=== PATIENT | male | born 2000 | race Caucasian/White ===

== ENCOUNTER 2020-06-25 13:35 | Emergency (ER) | payer BC, SELFPAY ==
[2020-06-25 13:43] VITALS: BP 143/84; PULSE 82; RESP 17; TEMP 36.8; O2SAT 98; BMI 39.9
[2020-06-25 13:45] VITALS: BP 126/87; PULSE 82; RESP 14; TEMP 37; O2SAT 98; BMI 39.9
--- NOTE | 2020-06-25 13:53 | XR_ITS ---
PROCEDURE: XR KNEE RT 3V CLINICAL INDICATION: injury playing softball COMPARISON: No exams were available for comparison FINDINGS: No fracture or dislocation. No lytic or blastic change. There is normal mineralization. The joint spaces are well-preserved. No significant degenerative/arthritic changes. No erosive changes evident. 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 IMPRESSION: No acute findings. Dictated by: Dr. Jonathan Payton MD 06/25/2020 14:16 Dr. Jonathan Payton MD in [place] 06/25/2020 14:16
[2020-06-25 14:58] VITALS: BP 126/87; PULSE 82; RESP 14; TEMP 37; O2SAT 98
--- NOTE | 2020-06-25 14:58 | HMH.EDUTC ---
[facility] [place]ression: Right knee sprain Qualifiers: Encounter type: initial encounter Involved ligament of knee: unspecified ligament Qualified Code(s): S83.91XA - Sprain of unspecified site of right knee, initial encounter Right knee pain Qualifiers: Chronicity: acute Qualified Code(s): M25.561 - Pain in right knee Disposition: Home, Self-Care Condition on Discharge: Good Instructions: DI for Knee Sprain Additional Instructions: Rest the extremity, apply ice for 15 minutes as tolerated three or four times per day, Elevate the extremity as tolerated while you are resting. Take ibuprofen for pain. I sent in a prescription to your pharmacy. Follow up with Dr. Delgado (orthopedics). I put in a referral but you need to call his office and schedule an appointment. Follow up with your regular doctor. GO TO THE ER FOR ANY WORSENING SYMPTOMS Prescriptions: Ibuprofen [Ibuprofen 600mg Tablet] 600 mg PO Q6HP PRN #30 tab PRN Reason: Mild Pain Transmission Status: Received by [id number] Referrals: Sunny Villalba MD [Primary Care Provider] - Antoine Delgado MD [Staff Physician] - Time of Disposition: 15:05 Medical Decision Making - Medical Records Medical records reviewed: No: I reviewed the patient's medical records. - Louis Inquiry Pt receiving controlled substance: No Vital Signs: 06/25/20 13:43 06/25/20 13:45 06/25/20 14:58 Temperature 98.3 F 98.6 F 98.6 F Temperature Source Oral Oral Pulse Rate 82 Pulse Rate [Left Brachial] 82 82 Respiratory Rate 17 14 14 Blood Pressure 126/87 Blood Pressure [Left Arm] 143/84 H 126/87 Blood Pressure Mean [Left Arm] 103 100 Blood Pressure Source [Left Arm] Automatic Cuff Automatic Cuff Blood Pressure Position [Left Arm] Sitting Sitting 02 Sat by Pulse Oximetry 98 98 Oxygen Delivery Method Room Air Room Air - Radiology Data #1 Image(s): Knee Image Reviewed: Yes I reviewed the patient's radiology image, Yes I have reviewed radiologist's interpretation Preliminary Findings: Normal/NAD, No Fracture Seen PROCEDURE: XR KNEE RT 3V CLINICAL INDICATION: injury playing softball COMPARISON: No exams were available for comparison FINDINGS: No fracture or dislocation. No lytic or blastic change. There is normal mineralization. The joint spaces are well-preserved. No significant degenerative/arthritic changes. No erosive changes evident. 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 IMPRESSION: No acute findings. Dictated by: Dr. Jonathan Payton MD 06/25/2020 14:16 Dr. Jonathan Payton MD in [place] 06/25/2020 14:16 [facility] [place] - General Stated complaint: [id number] right knee pain Time Seen by Provider: 06/25/20 13:45 Mode of Arrival: Ambulatory Source of Information: Patient Limitations: No Limitations Description of Symptoms (Recalled from Triage Doc. by RN): PATIENT C/O RIGHT KNEE PAIN. STATES HE WAS PLAYING SOFTBALL YESTERDAY AND HEARD SOMETHING POP HEENT Symptoms (Recalled from RN notes): No Resp Symptoms (Recalled from RN notes): No Skin Symptoms (Recalled from RN notes): No MS Symptoms (Recalled from RN notes): Yes Functional Status (Recalled from RN notes): WNL - History of Present Illness Provider Complaint: He states that he was playing softball yesterday when he hurt his right knee when he slid into a base. He states that he felt a pop and now he is having pain on the medial side of his knee. It is worse with walking or bearing weight. - Related Data Previous Rx's Medication Instructions Recorded Ibuprofen [Ibuprofen 600mg 600 mg PO Q6HP PRN #30 tab 06/25/20 Tablet] Allergies Allergy/AdvReac Type Severity Reaction Status Date / Time No Known Allergies Allergy Unverified 08/10/17 15:05 - Worker's Comp Is this a Worker's Comp case?: No [facility] History - Hepatitis A Screen Drug use history?: No High risk
== END 2020-06-25 15:10 | disposition home or self-care (01) ==
PROVIDERS: Emergency Provider Nurse Practitioner Family; PCP Family Medicine
DX: S83.91XA Sprain of unspecified site of right knee, initial encounter (principal); X50.1XXA Overexertion from prolonged static or awkward postures, initial encounter; Y93.64 Activity, baseball; Y92.328 Other athletic field as the place of occurrence of the external cause
CPT/HCPCS: 29505; 73562; 99202

== ENCOUNTER 2020-07-16 13:48 | Outpatient (RCR) | payer BC, SELFPAY ==
--- NOTE | 2020-07-16 14:55 | HMH.PTOPEV ---
PT Outpatient Evaluation Rehab PT Outpatient Evaluation Start: 07/16/20 14:41 Freq: Status: Active Protocol: Document 07/16/20 14:42 KESHIA (Rec: 07/16/20 14:55 RAYMONDAMY [id number]) Electronically Signed By Bentley Green, PT 07/16/20 14:42 Outpatient Therapy Subjective History Subjective History Patient is a 20 year old male presenting to outpatient PT with reports R knee pain starting approximatley 6 months ago with increased sporting activity levels. Most recent imaging negative. No other comorbidities to report. Chief Complaint Pain,Stiff Symptom Type Sharp,Shooting Symptoms Relieved By Rest/Positioning,Ice,OTC Meds Symptoms Aggravated By Standing,Physical Activity, Walking Prior Functional Limitations None Current Functional Limitations Housework,Standing,Squatting, Recreation Activity,Walking, Stairs Symptom Description Intermittent Level of pain today (0-10) 0 Pain scale - at its best (0-10) 0 Pain scale - at its worst (0-10) 7 Hip/Knee Eval Gait Observation General Gait Pattern Observation Antalgic Gait,Decrease Weight Bear (R) Assistive Device Assistive Devices None / NA Palpation Tenderness right Knee Palpation Finding Tenderness Knee Palpation Overall Comment Patellar tendon and apex of patella 3/4 MMT Hip Flexion Strength Grade 5 Normal Hip Abduction Strength Grade 5 Normal Hip Adduction Strength Grade 4 Good Hip Extension Strength Grade 4 Good Hip External Rotation Strength Grade 4 Good Hip Internal Rotation Strength Grade 4 Good Knee Extension Strength Grade 4- Good- Knee Flexion Strength Grade 5 Normal ROM Hip ROM Reason Not Measured Within Functional Limits Knee Extension Active Range of Motion ( -3 degrees) Knee Flexion Active Range of Motion ( 126 degrees) Special Tests Knee Apley Compression Test Negative Right Knee Anterior Drawer Test Negative Right Knee Anterior Timoteo Test Negative Right Knee Valgus Stress Test Negative Right Knee Varus Stress Test Negative Right Knee Mynor Test Negative Right Outpatient Therapy Assessment Impairments Problems/Impairmments Palpation Tenderness,Impaired Range of Motion,Impaired Strength,Impaired Gait Pattern ,Impaired Walking,Impai
== END 2020-07-16 13:50 | disposition home or self-care (01) ==
LOC: PT 13:48
PROVIDERS: PCP Family Medicine; Visit Provider Orthopaedic Surgery
DX: M76.51 Patellar tendinitis, right knee (principal); S83.001A Unspecified subluxation of right patella, initial encounter
CPT/HCPCS: 97163

== ENCOUNTER 2020-08-30 10:19 | Emergency (ER) | payer BC, SELFPAY ==
[2020-08-30 10:30] VITALS: BP 114/76; PULSE 104; RESP 19; TEMP 36.9; O2SAT 98; BMI 38.9
--- NOTE | 2020-08-30 10:52 | HMH.EDUTC ---
[facility] [place] Clinical Impression: Viral syndrome Disposition: Home, Self-Care Condition on Discharge: Good Instructions: DI for COVID-19 (Suspected or Confirmed ), Preventing the Spread of Coronavirus Discharge Instructions Additional Instructions: Drink plenty of fluids. Take tylenol for pain or fever. Return if you begin to have difficulty breathing. Follow up with your regular doctor. GO TO THE ER FOR ANY WORSENING SYMPTOMS Prescriptions: Ondansetron [Zofran 4mg ODT] 4 mg PO Q8HP PRN #12 tab.rapdis PRN Reason: Nausea Transmission Status: Received by [id number] Referrals: Sunny Villalba MD [Primary Care Provider] - Time of Disposition: 11:02 Medical Decision Making - Medical Records Medical records reviewed: No: I reviewed the patient's medical records. - Louis Inquiry Pt receiving controlled substance: No Vital Signs: 08/30/20 10:30 08/30/20 11:08 Temperature 98.4 F 98.4 F Temperature Source Oral Pulse Rate 104 H Pulse Rate [Right Brachial] 104 H Respiratory Rate 19 19 Blood Pressure 114/76 Blood Pressure [Right Arm] 114/76 Blood Pressure Mean [Right Arm] 88 Blood Pressure Source [Right Arm] Automatic Cuff Blood Pressure Position [Right Arm] Sitting 02 Sat by Pulse Oximetry 98 Oxygen Delivery Method Room Air Orders (Tests/Meds): ORDERS Category Date Time Status Covid-19 Nasal PCR ([facility]) Routine Lab 08/30/20 10:30 Received [facility] [place] HPI - General Stated complaint: covid test Time Seen by Provider: 08/30/20 10:52 Mode of Arrival: Ambulatory Source of Information: Patient Limitations: No Limitations Description of Symptoms (Recalled from Triage Doc. by RN): PATIENT REQUESTING COVID TEST D/T EXPOSURE; C/O BODY ACHES AND NO TASTE OR SMELL HEENT Symptoms (Recalled from RN notes): Yes Resp Symptoms (Recalled from RN notes): No Skin Symptoms (Recalled from RN notes): No MS Symptoms (Recalled from RN notes): No Functional Status (Recalled from RN notes): WNL - History of Present Illness Provider Complaint: He states that for the past 2 days he has had nausea, chilling, body aches. He has been exposed to covid-19. - Related Data Previous Rx's Medication Instructions Recorded Ibuprofen [Ibuprofen 600mg 600 mg PO Q6HP PRN #30 tab 06/25/20 Tablet] Ondansetron [Zofran 4mg ODT] 4 mg PO Q8HP PRN #12 tab.rapdis 08/30/20 Allergies Allergy/AdvReac Type Severity Reaction Status Date / Time No Known Allergies Allergy Verified 06/27/20 08:59 - Worker's Comp Is this a Worker's Comp case?: No [facility] History - Hepatitis A Screen Drug use history?: No High risk sexual behaviors?: No History of sexually transmitted infection?: No Currently employed?: No Childcare worker?: No Do you have indoor plumbing?: Yes Do you have electricity?: Yes Attestation statement:: This patient has been screened for Hepatitis A risk factors. I have reviewed the patient's past medical history: Yes Other Surgeries: Yes: No Previous Surgery - Social History Smoking Status: Never smoker Alcohol Intake: never Substance Use Type: denies use Occupational Status: other ROS Obtained: Yes All systems reviewed & no additional complaints - Constitutional Constitutional: Reports chills, Denies fever(s), Reports poor appetite, Reports malaise - Eyes Eyes: Denies eye discharge - ENT Ears, Nose, Mouth, and Throat: Reports as per HPI - Cardiovascular Cardiovascular: Reports system reviewed and no additional complaints, except as docu - Respiratory Respiratory: Reports system reviewed and no additional complaints, except as docu - Gastrointestinal Gastrointestingal: Reports: system reviewed and no additional complaints, except as docu Physical Exam - General General appearance: alert, in no apparent distress - Head Head exam: atraumatic, normocephalic, normal inspection - Eye Eye exam: Present: normal appearance, PERRL, EOMI - EN
[2020-08-30 11:08] VITALS: BP 114/76; PULSE 104; RESP 19; TEMP 36.9; O2SAT 98
--- NOTE | 2020-08-30 17:29 | PC.NURSE ---
PT NOTIFIED OF POSITIVE COVID RESULTS
== END 2020-08-30 11:09 | disposition home or self-care (01) ==
PROVIDERS: Emergency Provider Nurse Practitioner Family; PCP Family Medicine
DX: U07.1 COVID-19 (principal)
CPT/HCPCS: 99202; G0463; U0003

== ENCOUNTER 2021-07-23 19:23 | Emergency (ER) | payer BC, SELFPAY ==
--- NOTE | 2021-07-23 19:14 | ECG_ITS ---
APPROVED REPORT Exam: Resting ECG HR:92 bpm ECG Measurements Heart Rate 92 AXES [place] 134 P 77 QRSd 80 QRS 49 QT 360 T 43 QTc 445 Conclusion Normal sinus rhythm Normal ECG Electronically signed by : Sunny Tinsley MD 07/24/2021 20:25:00
[2021-07-23 19:24] VITALS: BP 138/83; PULSE 97; RESP 16; TEMP 36.8; O2SAT 100; BMI 38.9
--- NOTE | 2021-07-23 19:25 | XR_ITS ---
PROCEDURE INFORMATION: Exam: XR Chest Exam date and time: 07/23/2021 7:25 PM Age: 21 years old Clinical indication: Sternal or substernal pain; Patient HX: Mid sternum chest pain started tonight; Additional info: Cough TECHNIQUE: Imaging protocol: XR of the chest. Views: 1 view. Total images: 1 COMPARISON: No relevant prior studies available. FINDINGS: Lungs: Normal pulmonary expansion. Pulmonary vasculature grossly normal. No gross pulmonary infiltrates or edema pattern. Pleural spaces: No pleural effusion. No pneumothorax. Heart/Mediastinum: Heart size normal. No tracheal/mediastinal shift. Bones/joints: No acute osseous abnormalities are identified. Other findings: Lordotic projection. IMPRESSION: No acute thoracic process.
--- NOTE | 2021-07-23 19:28 | HMH.EDCP ---
ED Disposition Clinical Impression: Costalchondritis Disposition: Home, Self-Care Condition on Discharge: Good Instructions: DI for Costochondritis Referrals: Sunny Villalba MD [Primary Care Provider] - - Critical Care Critical Care Time: No Attestation: On 07/23/21, the high probability of a clinically significant, sudden or life threatening deterioration of the following system(s) required my full and direct attention, intervention and personal management. The time I documented below is in addition to time spent performing reported procedures but includes the following listed in this critical care notation. Medical Decision Making - Medical Records Medical records reviewed: Yes: I reviewed the patient's medical records. - Louis Inquiry Pt receiving controlled substance: No Vital Signs: 07/23/21 19:24 Temperature 98.2 F Temperature Source Oral Pulse Rate [Right Radial] 97 H Respiratory Rate 16 Blood Pressure [Right Arm] 138/83 Blood Pressure Mean [Right Arm] 101 Blood Pressure Source [Right Arm] Automatic Cuff Blood Pressure Position [Right Arm] Sitting 02 Sat by Pulse Oximetry 100 Oxygen Delivery Method Room Air - Lab Data Lab Results 07/23/21 19:26: WBC 9.7, RBC 5.44, Hgb 15.4, Hct 44.7, MCV 82.2, MCH 28.3, MCHC 34.4, RDW 13.1, Plt Count 390, MPV 7.0 L, Neut % (Auto) 67.1, Lymph % (Auto) 23.4, [place] % (Auto) 6.6, Eos % (Auto) 1.9, Baso % (Auto) 0.9, Neut # (Auto) 6.5, Lymph # (Auto) 2.3, [place] # (Auto) 0.7, Eos # (Auto) 0.2, Baso # (Auto) 0.1 07/23/21 19:26: Sodium 140, Potassium 3.9, Chloride 101, Carbon Dioxide 29, Anion Gap 13.9, BUN 14, Creatinine 0.80, Estimated Creat Clear 297, Estimated GFR 121, Est GFR ( Amer) 146, Glucose 97, Calcium 9.9, Total Bilirubin 0.4, AST 36, ALT 28, Alkaline Phosphatase 104, Troponin I < 0.01, Total Protein 8.4 H, Albumin 4.9, Globulin 3.5 H, Albumin/Globulin Ratio 1.4, Lipase 51 Result diagrams: 07/23/21 19:26 07/23/21 19:26 Orders (Tests/Meds): ED MEDICATIONS Generic Name Dose Route Start Last Admin Trade Name Freq PRN Reason Stop Dose Admin Sodium Chloride 8 ml 07/23/21 19:25 Sodium Chloride 0.9% 10ml Vial IV 08/22/21 19:24 NEEDED PRN dilute pepcid Discontinued Medications Generic Name Dose Route Start Last Admin Trade Name Freq PRN Reason Stop Dose Admin Famotidine 20 mg 07/23/21 19:25 07/23/21 19:42 Famotidine 20mg/2ml Vial IV 07/23/21 19:26 20 mg ONCE ONE Administration Ketorolac Tromethamine 30 mg 07/23/21 19:25 07/23/21 19:42 Ketorolac 30mg/Ml Vial IV 07/23/21 19:26 30 mg ONCE ONE Administration ORDERS Category Date Time Status Troponin I Q3H Lab 07/23/21 22:30 Ordered Troponin I Q3H Lab 07/24/21 01:30 Ordered - ECG Data Tracing #1 I reviewed this ECG and interpreted as documented below: ECG initial impression date: 07/23/21 ECG initial impression time: 19:14 ECG normal with no acute: arrhythmias, ischemia, conduction abnormalities, chamber hypertrophy Normal Sinus Rhythm: Yes - Reevaluation(s) Time: 20:13 Reevaluation #1: On reevaluation, patient is pain-free. Work-up negative. Low risk for acute coronary syndrome. Patient to follow-up with PCP in 48 hours. Given strict return precautions. Verbalized understanding. - MARYANN Score for Non-Stemi Age of Patient: <30 years old Heart Rate: 70-89 bpm Systolic Blood Pressure: 120-139 mmhg Serum Creatinine: <0.40 mg/dl CHF [place] Class: I-No CHF Other Risk Factors: None Non-Stemi Risk Score: 44 Risk Stratification: 1-108 = Low Risk Medical Decision Narrative: Is a 21-year-old male presented to the emergency department with some nonspecific chest pain for the last 2 months. Patient is low risk for acute coronary syndrome based on heart score. I do believe is likely more related to dyspepsia musculoskeletal in nature. Work-up will be initiated. Chest Pain HPI - General Chief Complaint: Chest Pain Stated
[2021-07-23 19:30] VITALS: BP 129/90; PULSE 84; O2SAT 100
[2021-07-23 19:36] LABS: Basophils # 0.1 K/mm3 (0-0.2); Basophils % 0.9 % (0.1-2.0); Eosinophils # 0.2 K/mm3 (0.0-0.4); Eosinophils % 1.9 % (0.1-12.0); Hematocrit 44.7 % (42.0-52.0); Hemoglobin 15.4 g/dL (14.1-18.0); Lymphocytes # 2.3 K/mm3 (0.7-4.5); Lymphocytes % 23.4 % (10-50); Mean Corpuscular HGB Conc 34.4 g/dL (31.8-35.4); Mean Corpuscular Hemoglobin 28.3 pg (27.0-31.2); Mean Corpuscular Volume 82.2 fl (80-94); Monocytes # 0.7 K/mm3 (0.1-1.0); Monocytes % 6.6 % (1.7-9.3); Neutrophils # 6.5 K/mm3 (1.8-7.8); Neutrophils % 67.1 % (37.0-80.0); Platelet Count 390 K/mm3 (142-424); Red Blood Count 5.44 M/mm3 (4.60-6.20); Red Cell Distribution Width 13.1 % (11.5-17.5); White Blood Count 9.7 K/mm3 (4.8-10.8)
[2021-07-23 19:45] VITALS: BP 120/68; PULSE 87; O2SAT 99
[2021-07-23 19:52] LABS: Chloride 101 mmol/L (98-107)
[2021-07-23 19:53] LABS: Potassium 3.9 mmoL/L (3.5-5.1); Sodium 140 mmol/L (136-145)
[2021-07-23 19:55] LABS: Alanine Aminotransferase 28 U/L (12-78); Albumin Level 4.9 g/dl (3.5-5.0); Albumin/Globulin Ratio 1.4 (1.1-1.8); Alkaline Phosphatase 104 U/L (38-126); Anion Gap 13.9 mEq/L (5-15); Aspartate Amino Transferase 36 U/L (17-59); Bilirubin,Total 0.4 mg/dl (0.2-1.3); Blood Urea Nitrogen 14 mg/dl (9-20); Calcium 9.9 mg/dl (8.4-10.2); Carbon Dioxide 29 mmol/L (22.0-30.0); Creatinine Clearance Estimated 297 mL/min (50-200); Estimated Glomerular Filt Rate 121 ml/min (>60); GFR (African American) 146 ML/MIN (>60); Globulin 3.5 g/dL (1.3-3.2); Glucose 97 mg/dl (74-100); Lipase 51 U/L (23-300); Total Protein,Serum 8.4 g/dl (6.3-8.2)
[2021-07-23 20:00] VITALS: BP 110/66; PULSE 80; O2SAT 99
[2021-07-23 20:12] LABS: Troponin I < 0.01 ng/ml (0.00-0.034)
[2021-07-23 21:00] VITALS: BP 110/60; PULSE 85; RESP 16; TEMP 36.8
== END 2021-07-23 20:30 | disposition home or self-care (01) ==
PROVIDERS: Emergency Provider Emergency Medicine; PCP Family Medicine
DX: M94.0 Chondrocostal junction syndrome [Tietze] (principal)
CPT/HCPCS: 71045; 80053; 83690; 84484; 85025; 93005; 99282